=== PATIENT | female | born 1970 | race Caucasian/White ===

== ENCOUNTER 2016-08-22 12:29 | Outpatient (CLI) | payer OTHER ==
[~2016-08-22 12:29] MED LIST: BENADRYL25 MG PO; DEPO-PROVER150 MG/ML; PERCOCET1 TA4 PO; ZOFRAN4 MG PO
--- NOTE | 2016-08-22 12:46 | DIAGNOSTIC IMAGING REPORT ---
PROCEDURE: XR CHEST 2 VIEW INDICATION: SLEEP DISORDER, COUGH TECHNIQUE: PA and lateral views. COMPARISON: None. FINDINGS: Lungs are clear. Heart and mediastinum are normal. Thorax is normal. IMPRESSION: 1. Negative chest.
== END 2016-08-22 23:00 ==
LOC: XR SRH 12:29
DX: G47.9 Sleep disorder, unspecified (principal); R05 Cough